=== PATIENT | male | born 1995 | race Asian ===

== ENCOUNTER 2016-08-13 11:27 | Emergency (ER) | payer OTHER ==
[2016-08-13 11:38] VITALS: RESP 16; TEMP 98.6
--- NOTE | 2016-08-13 12:04 | EDPHY ---
H & P Time Seen by Provider: 08/13/16 11:35 HPI/ROS: CHIEF COMPLAINT: Abscess on buttock HISTORY OF PRESENT ILLNESS: 20-year-old male presents to the emergency department with an abscess to his buttock for the last 2-3 days. He denies any known trauma or injury. He states that he had similar symptoms 3 years ago and they resolved on their own. He denies abdominal pain or back pain. Denies fevers or chills. Denies chest pain or difficulty breathing. He does soak his buttock in warm water intermittently over last few days. No drainage. REVIEW OF SYSTEMS: Constitutional: No fever, no chills. Eyes: No double or blurry vision. ENT: No sore throat. Respiratory: No cough, no shortness of breath. Cardiac: No chest pain. Gastrointestinal: No abdominal pain, vomiting or diarrhea. Genitourinary: No dysuria. Musculoskeletal: No neck or back pain. Skin: No rashes. Neurological: No headache. Past Medical/Surgical History: Negative Social History: [employer] student Smoking Status: Never smoked Physical Exam: General Appearance: Alert, no distress. Afebrile. Anxious. Eyes: Pupils equal and round. Extraocular motions are all intact. ENT: Mouth: Mucous membranes moist. Respiratory: No wheezing, rhonchi, or rales, lungs are clear to auscultation. Cardiovascular: Regular rate and rhythm. Gastrointestinal: Abdomen is soft and nontender, no masses, no rebound or guarding, bowel sounds normal. Neurological: Alert and oriented x 3, cranial nerves II through XII grossly intact Rectum: Left superior buttock reveals area of redness, induration and palpable lump. It does not extend into the rectum. There is no drainage noted. Tender to palpate. It does not extend to the right buttock. Skin: Warm and dry, no rashes. Musculoskeletal: Nontender to palpate along the cervical, thoracic or lumbar spine. Neck is supple. Extremities: Full range of motion and no peripheral edema. Psychiatric: Patient is oriented X 3, there is no agitation. Constitutional: Initial Vital Signs Temperature (C) 37.0 C 08/13/16 11:37 Heart Rate 120 H 08/13/16 11:37 Respiratory Rate 16 08/13/16 11:37 Blood Pressure 172/110 H 08/13/16 11:37 O2 Sat (%) 97 03/18/17 11:37 O2 Delivery Mode Room Air Allergies/Adverse Reactions: No Known Allergies Allergy (Unverified 08/13/16 11:37) Home Medications: Medication Instructions Recorded Cephalexin [Keflex] 500 mg PO QID #28 cap 08/13/16 Medical Decision Making Procedures: Procedure: Abscess drainage. The patient's abscess was located on the left buttock. Risks, benefits, alternatives discussed with the patient and consent obtained. The abscess was incised with a #11 blade and purulent drainage was expressed. No packing placed. The patient tolerated the procedure well. The procedure was performed by myself. ED Course/Re-evaluation: 20-year-old male presents with perirectal abscess. The wound was opened and drained, see procedure note. He tolerated this quite well. The patient elected not to have packing so he can continue soaking his buttock in warm water. He will be started on Keflex. He was instructed to return to the emergency department if he developed fever, recurring pain or swelling, or if he felt worse in any way. Differential Diagnosis: Including but not limited to perirectal abscess, pilonidal cyst, cellulitis Departure - Departure Disposition: Home, Routine, Self-Care Clinical Impression: Perirectal abscess Condition: Good Instructions: Rectal Abscess (ED) Additional Instructions: Keflex as directed for 1 week. Soak your buttock in warm water 15-20 min 3 times today and tomorrow. Apply antibiotic ointment to wound after soaking in warm water. Ibuprofen 600mg every 8 hours for pain as directed. Return if you develop fever, increasing pain, or if you feel worse in any way. Referrals: Kita Carcamo DO [Doctor of Osteopathy] - 2-3 days, if not improved (Primary care provider radiation physicist) Prescriptions: Cephalexin [Keflex] 500 mg PO QID #28 cap
[2016-08-13 12:20] VITALS: BP 141/83; PULSE 95; O2SAT 95
== END 2016-08-13 12:20 | disposition home or self-care (01) ==
PROC: 0H98XZZ Drainage of Buttock Skin, External Approach (ICD-10-PCS; principal; 2016-08-13)
DX: L02.31 Cutaneous abscess of buttock (principal)

== ENCOUNTER 2016-10-07 11:54 | Emergency (ER) | payer OTHER ==
--- NOTE | 2016-10-07 12:29 | EDPHY ---
H & P Time Seen by Provider: 10/07/16 12:07 HPI/ROS: CHIEF COMPLAINT: Recurrent pilonidal cyst HISTORY OF PRESENT ILLNESS: 21-year-old male history of recurrent pilonidal cyst complaining of 3 days of tenderness, drainage at same region. No fever no chills. No pain with defecation. No abdominal pain fever no chills no flu-like symptoms. REVIEW OF SYSTEMS: A ten point review of systems was performed and is negative with the exception of the items mentioned in the HPI PAST MEDICAL & SURGICAL HISTORY: Pilonidal cyst SOCIAL HISTORY:student PHYSICAL EXAM (Prior to examination, patient consented to physical exam, hands were washed and my usual and customary physical exam procedures followed) 1) GENERAL: Well-developed, well-nourished, alert and oriented. Appears to be in no acute distress. 2) HEAD: Normocephalic, atraumatic 3) HEENT: Sclera anicteric. 4) NECK: Full range of motion, no meningeal signs. 5) LUNGS: Clear auscultation bilaterally 6) HEART: Regular rate and rhythm, no murmur, no heave, no gallop. 7) ABDOMEN: No guarding, no rebound, no focal tenderness, 8) MUSCULOSKELETAL: No peripheral edema or discoloration. 9) BACK: cleft of buttock erythema induration tenderness consistent with pilonidal cyst abscess.. 10) SKIN: No rash, no petechiae. DIFFERENTIAL DIAGNOSIS: in no particular include but limited to cellulitis, pilonidal cyst abscess, perianal abscess Smoking Status: Never smoked Constitutional: Initial Vital Signs Temperature (C) 36.9 C 10/07/16 11:56 Heart Rate 92 10/07/16 11:56 Respiratory Rate 18 10/07/16 11:56 Blood Pressure 131/92 H 10/07/16 11:56 O2 Sat (%) 96 10/07/16 11:56 O2 Delivery Mode Room Air Allergies/Adverse Reactions: No Known Allergies Allergy (Verified 10/07/16 11:56) Home Medications: Medication Instructions Recorded Cephalexin [Keflex] 500 mg PO TID 10 Days 10/07/16 Sulfamethox/Tmp 800/160 mg 1 tab PO BID@1000,2200 10 Days 10/07/16 [Bactrim Ds] MDM/Departure - MDM Procedures: Procedure: Abscess drainage. The patient's abscess was located on the cleft of buttock. I obtained verbal consent from the patient to drain the abscess who was informed about the possibility of bleeding and pain as well as other risks and benefits and indications.. The abscess was incised with 11. Scalpel and a moderate amount of purulent discharge was expressed, cultured. I irrigated the wound . The patient tolerated the procedure well. The procedure was performed by myself. ED Course/Re-evaluation: Patient's abscess was incised and drained. He is returning to [facility] in 3 days and will be staying there for the remainder of the summer. Recommend he follow up with a general surgeon in [facility] for further evaluation of his pilonidal cyst. - Depart Disposition: Home, Routine, Self-Care Clinical Impression: Pilonidal cyst with abscess Condition: Good Instructions: Pilonidal Cyst (ED) Additional Instructions: Return to the ER if you develop new or worsening pain, or any other symptoms that concern you. Prescriptions: Cephalexin [Keflex] 500 mg PO TID 10 Days Sulfamethox/Tmp 800/160 mg [Bactrim Ds] 1 tab PO BID@1000,2200 10 Days Referrals: Adolfo Blanco MD [Medical Doctor] - 5-7 days, call for appt.
[2016-10-07 12:43] VITALS: BP 128/85; PULSE 113; RESP 16; TEMP 98.6; O2SAT 93
== END 2016-10-07 12:44 | disposition home or self-care (01) ==
PROC: 0J990ZZ Drainage of Buttock Subcutaneous Tissue and Fascia, Open Approach (ICD-10-PCS; principal; 2016-10-07)
DX: L05.01 Pilonidal cyst with abscess (principal)